=== PATIENT | female | born 1970 ===

== ENCOUNTER → 2017-05-23 | Day surgery (SDC) | payer BC ==
[~2017-05-23] MED LIST: IRON325 MG PO; STOOL SOFTENER100 M1 PO
--- NOTE | ~2017-05-23 | OR ---
Unit #: [id number] #: [id number] Patient: RIGO STILES [id number] [facility] [address] [place], [place] [address] [id number] MR#: [id number] NAME: RIGO STILES ROOM: Date of Procedure: 05/23/2017 Admission Date: 05/23/2017 Surgeon: Caesar Levy M.D. : 1970 Attending Physician: Caesar Levy M.D. OPERATIVE REPORT PREOPERATIVE DIAGNOSIS Iron-deficiency anemia. POSTOPERATIVE DIAGNOSIS Possible Dieulafoy lesion of the stomach. PROCEDURES PERFORMED Esophagogastroduodenoscopy with biopsy and hemoclipping, colonoscopy to terminal ilium. ANESTHESIA Monitored anesthesia. INDICATIONS FOR PROCEDURE Otherwise healthy 46-year-old female, was found to have a significant and profound iron deficiency anemia. She denied excessive menstrual bleeding and otherwise no clinical evidence of bleeding. She had been put on oral iron supplementation without improvement in her anemia. Endoscopic evaluation was requested. DESCRIPTION OF PROCEDURE The patient was admitted to [facility], positively identified, transported to the endoscopy suite where after appropriate monitoring and positioning, she was sedated by the anesthesiologist. A bite block had been placed. The endoscope was passed through the oral cavity into the esophagus. Under direct vision, I passed through the esophagus and the esophagus was normal. The GE junction was well demarcated at 40 cm from the incisors. There was no hiatal hernia. No esophagitis, no Hughes mucosa. As I entered the stomach and insufflated, I passed down through the stomach through the pylorus down the third and fourth portion of the duodenum. Duodenum and duodenal bulb were normal. In the stomach, along the greater curvature, as I retroflexed, there was a small area of persistent bleeding. I could not see an active arterial pumper, but there was a small little pinpoint depression where the blood was coming from. I irrigated copiously, but could not visualize a vessel. The area was biopsied and then hemoclipped which stopped the oozing. The area was again irrigated forcefully and no further bleeding was noted. As I came back in a retrograde fashion, no other abnormalities were noted in the upper GI tract. Larynx was not well visualized due to coughing. After completion of the upper scope, the patient was repositioned. On rectal examination, she has some perianal skin tags and mucosal redundancy, but no active hemorrhoidal disease. On digital examination, Unit #: [id number] #: [id number] Patient: RIGO STILES there were no palpable masses. Colonoscope was passed through the anal verge throughout the extent of the colon to the cecum. In the cecum, the terminal ileum was intubated for 20 cm. The terminal ilium was normal. On antegrade and retrograde visualization, no blood was seen in the colon. On retrograde visualization, there were no abnormalities of the colon. In retroflexing the scope, there was no internal hemorrhoidal disease. The patient tolerated the procedure well and was transported to recovery in stable condition. Findings were discussed with her . We will await the biopsy results. In the interim, I am going to start her on some Zantac and told her to continue her iron supplementation. Dictated by... Dexter Ocampo/dakotah TD: 05/23/2017 18:56 JOB #: [id number] CC: Bonnie Dutton M.D. OPERATIVE REPORT Page 1 of 1 X Caesar Levy MD PROCEDURE OPERATIVE NOTE
== END | disposition home or self-care (01) ==
LOC: COPS 12:20
DX: K29.50 Unspecified chronic gastritis without bleeding (principal); D50.9 Iron deficiency anemia, unspecified; Z80.0 Family history of malignant neoplasm of digestive organs; Z79.899 Other long term (current) drug therapy
CPT/HCPCS: 84703; 88305; 88312; J2250